=== PATIENT | female | born 1995 | race African-American/Black ===

== ENCOUNTER 2017-01-20 19:20 | Emergency (ER) | payer OTHER ==
[~2017-01-20] VITALS: Ht 160 cm; Wt 84.4 kg
[2017-01-20 20:15] VITALS: BP 114/74
[2017-01-20] MEDS ORDERED: CYCL10TA2 PO (20:27)
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
[2017-01-20] MEDS ORDERED: IBUPROFEN 800 MG TABLET. PO ONE (20:30)
== END 2017-01-20 20:45 | disposition home or self-care (01) ==
LOC: ER 19:20
DX: S39.92XA Unspecified injury of lower back, initial encounter (principal); V49.50XA Passenger injured in collision with unspecified motor vehicles in traffic accident, initial encounter; Y93.I9 Activity, other involving external motion; Y92.410 Unspecified street and highway as the place of occurrence of the external cause; Y99.8 Other external cause status
CPT/HCPCS: 99283

== ENCOUNTER 2017-02-02 08:45 | Emergency (ER) | payer OTHER ==
[~2017-02-02] VITALS: Ht 160 cm; Wt 84.4 kg
[~2017-02-02 08:45] MED LIST: CYCL10TA2 PO
[2017-02-02 08:54] VITALS: BP 134/78
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
[2017-02-02] MEDS ORDERED: IBUPROFEN 800 MG TABLET. PO ONE (11:15)
== END 2017-02-02 11:17 | disposition home or self-care (01) ==
LOC: ER 08:45
DX: S16.1XXA Strain of muscle, fascia and tendon at neck level, initial encounter (principal); S33.5XXA Sprain of ligaments of lumbar spine, initial encounter; V49.88XA Car occupant (driver) (passenger) injured in other specified transport accidents, initial encounter; Y93.89 Activity, other specified; Y99.8 Other external cause status; Y92.488 Other paved roadways as the place of occurrence of the external cause
CPT/HCPCS: 72100; 72125; 81025; 84703; 99284-25